=== PATIENT | male | born 1995 | race African-American/Black ===

== ENCOUNTER 2016-12-26 09:26 | Emergency (ER) | payer SELFPAY ==
[~2016-12-26] VITALS: Ht 175.3 cm; Wt 68.0 kg
[2016-12-26 09:28] VITALS: BP 117/75
[2016-12-26] MEDS ORDERED: IBUPROFEN 200 MG TABLET ONE (09:52)
[2016-12-26] MEDS ORDERED: IBUPROFEN 200 MG TABLET PO ONE (10:00)
== END 2016-12-26 10:54 | disposition home or self-care (01) ==
LOC: ED 10:24
DX: S93.491A Sprain of other ligament of right ankle, initial encounter (principal); V00.131A Fall from skateboard, initial encounter; Y93.51 Activity, roller skating (inline) and skateboarding; Y99.8 Other external cause status; Y92.89 Other specified places as the place of occurrence of the external cause
CPT/HCPCS: 99284

== ENCOUNTER 2017-08-14 09:12 | Emergency (ER) | payer MEDICAID, OTHER ==
[~2017-08-14] VITALS: Ht 172.7 cm; Wt 60.4 kg
[2017-08-14 09:13] VITALS: BP 117/72
[2017-08-14] MEDS ORDERED: IBUPROFEN 200 MG TABLET PO ONE (10:00)
== END 2017-08-14 09:43 | disposition home or self-care (01) ==
LOC: ED 09:37
DX: J02.9 Acute pharyngitis, unspecified (principal)
CPT/HCPCS: 99283

== ENCOUNTER 2018-12-23 13:39 | Emergency (ER) | payer MEDICAID ==
[~2018-12-23] VITALS: Ht 172.7 cm; Wt 66.8 kg
[2018-12-23 13:49] VITALS: BP 123/81
--- NOTE | 2018-12-23 14:31 | NUR ---
Patient/Caregiver given discharge instructions and they have confirmed that they understand the instructions. Patient ambulatory with steady gait.
== END 2018-12-23 14:33 | disposition home or self-care (01) ==
LOC: ED 14:10
DX: G89.11 Acute pain due to trauma (principal); M25.511 Pain in right shoulder; V00.128A Other non-in-line roller-skating accident, initial encounter; Y93.89 Activity, other specified; Y92.410 Unspecified street and highway as the place of occurrence of the external cause; Y99.8 Other external cause status
CPT/HCPCS: 99283

== ENCOUNTER 2019-08-30 15:18 | Emergency (ER) | payer MEDICAID ==
[~2019-08-30] VITALS: Ht 172.7 cm; Wt 70.2 kg
[2019-08-30 15:29] VITALS: BP 108/67
--- NOTE | 2019-08-30 15:54 | NUR ---
Pt to room from lobby.
--- NOTE | 2019-08-30 16:45 | NUR ---
IMAGING AT BEDSIDE. PT DENIES ANY CURRENT NEEDS OR CONCERNS. CALL LIGHT IN REACH.
== END 2019-08-30 18:50 ==
LOC: ED 18:44
DX: G89.11 Acute pain due to trauma (principal); M25.531 Pain in right wrist; V00.131A Fall from skateboard, initial encounter; Y93.89 Activity, other specified; Y92.89 Other specified places as the place of occurrence of the external cause; Y99.8 Other external cause status
CPT/HCPCS: 99283

== ENCOUNTER 2020-06-05 01:35 | Emergency (ER) | payer MEDICAID ==
[~2020-06-05] VITALS: Ht 175.3 cm; Wt 70.9 kg
[2020-06-05 01:36] VITALS: BP 116/68
--- NOTE | 2020-06-05 01:47 | NUR ---
ERP TO BEDSIDE
--- NOTE | 2020-06-05 01:59 | NUR ---
ICE PACK APPLIED TO ANKLE AT THIS TIME
[2020-06-05] MEDS ORDERED: IBUPROFEN 200 MG TABLET PO ONE (02:00)
[2020-06-05] MEDS ORDERED: IBUPROFEN 600 MG TABLET ONE (02:05)
--- NOTE | 2020-06-05 02:10 | NUR ---
PT MEDICATED PER MAR
== END 2020-06-05 03:14 | disposition home or self-care (01) ==
LOC: ED 01:49
DX: S93.491A Sprain of other ligament of right ankle, initial encounter (principal); F17.210 Nicotine dependence, cigarettes, uncomplicated; X50.1XXA Overexertion from prolonged static or awkward postures, initial encounter; Y93.89 Activity, other specified; Y92.89 Other specified places as the place of occurrence of the external cause; Y99.8 Other external cause status
CPT/HCPCS: 99406